=== PATIENT | male | born 1955 | race Caucasian/White ===

== ENCOUNTER 2022-03-20 15:15 | Outpatient (RCR) | payer MEDICARE, SELFPAY ==
--- NOTE | 2022-02-11 16:15 | PT.OPDNX ---
PT [facility] Daily Note [facility] Daily Note Start: 01/30/22 14:58 Freq: Status: Active Protocol: Document 02/06/22 15:19 MARTHA (Rec: 02/06/22 16:26 MARTHA [id number]) E-Signed By Viktoriya Rodriguez DPT PT [facility] Daily Progress Note Visit Information Note Type Daily Note Visit Number 11 Insurance Authorized Visits - Physician Authorized Visits - Insurance Information Recert Due Date 02/13/22 Insurance Name [facility] Medical Diagnosis R shoulder RC bursitis Treating Diagnosis R shoulder pain, impaired R shoulder ROM, impaired R shoulder mobility/strength, limited tolerance for lifting/ reaching/throwing/workouts/ playing guitar, impaired posture, interrupted sleep. Subjective Subjective Patient reports minimal R shoulder pain. Main c/o ongoing pain in L forearm, feels he is getting some nerve pain and carpal tunnel syndrome pains which he's had before. HEP is going fine. Didn't get into the nerve glide exercises yet. Noticing some wrist, forearm, and finger pain/sx with typing and playing the guitar. Ongoing tightness and limited ROM reaching behind LB. Home Exercise Home Exercise Comments codmans shoulder rolls ice/heat table slide flex, circles, alphabet nerve glides UE green TB - shoulder ext, rows wand - ext, IR kanchan - flex, scap, IR HO issued for HEP Objective Patient Instructed in Risks/Benefits Yes Therapeutic Exercise Therapeutic Exercise Minutes (minutes) 44 Therapeutic Exercise: To Restore Review of HEP, nerve glides Functional Status Lat pull downs - 5 plates x 20 triceps - 3 plates x 20 bilateral UE pull down - 3 plates x 20 rows - 2 plates x 20 shoulder ext - 2 plates x 20 CC sideways - 2 plates - reach out/in x 10, half crow x 10 - performed facing R/L PNF patterns D1/D2 ext - 2 plates x 20 R/L PNF patterns D1/D2 flex - 1 1/ 2 plates x 20 R/L biceps curl - 3 plates x 20 wand - ext and IR green TB - ext and rows kanchan IR stretching HO for HEP. Treatment Minutes Timed Code Treatment Minutes 44 Total Treatment Time 44 Billing Units Therapeutic Exercise Units 3 Assessment/Impression Assessment/Impression R shoulder pain continues to be minimal to none. Still some pain with certain reaching motions or positions. Patient is tight with IR reach behind low back. Overall R shoulder pain/sx have improved and R shoulder ROM has improved. Patient is tolerating R shoulder strengthening and stabilization exercises well. No longer needing k-tape to support the R shoulder. Patient c/o ongoing R forearm pain with certain positions, reaching with UE. Appears to be some UE neural tension including radial and median nerves. Patient reports noticing some carpal tunnel syndrome tingling into R hand/ 2nd finger this past week. He hasn't been doing the nerve glide exercises. Continued today with gym program for shoulder ROM, strengthening, and stabilization. Reviewed nerve glides today and patient will work these into his HEP. R shoulder IR stretching with wand and kanchan added to HEP as this remains tight, limited with AROM. Patient would benefit from skilled PT for ongoing pain/sx management , improved R shoulder ROM, improved R shoulder strength/ stability, and progression of HEP. Will send progress note and recert to PA for signature and continue PT 1x/week for ongoing progress toward PT goals. Plan of Care Physical Therapy Goals 1. Decrease R shoulder pain to less than/equal to 3/10 with daily/workout activities and with the progression of PT activities over the next 4-6 weeks. - R shoulder pain has been less, some ongoing R forearm pain/sx 2. Decrease R shoulder pain so that patient is able to sleep through the night on a regular basis within 3-4 weeks . - MET 3. Improve R shoulder AROM over the next 6-8 weeks for return to daily/workout activities without flare up of pain. - R shoulder IR remains tight, limited. 4. Patient will be educated on posture and body mechanics over the next 3-4 weeks for decreased stress to UBN/ shoulder region, improved shoulder mechanics, and decreased shoulder pain. - MET 5. Improve R shoulder strength over the next 10-12 weeks for return to PLF with daily/workout activities and playing the guitar without flare up of pain. - strength improving 6. Patient will be I with HEP within 12 weeks for progression toward above goals , ongoing self management of pain/sx, ongoing self improvements in posture/shoulder strength/ mechanics, and for return to PLF with daily/workout activities without flare up of pain. - HEP in place, progressing as able Daily Plan of Care Continue per POC Recertification Information Clinical Certification # #[id number] Patient's H.I.C.N.# # Initial Certification Date 11/21/21 Most Recent Visit 02/06/22 Recertification Start Date 02/06/22 Recertification Due Date 03/22/22 Reasons to Continue Skilled Therapy see above note Rehabilitation Potential good Continued Plan of Care and Interventions 1x/week TE, MT as needed. I Certify That I Have Established All Therapy Services/Plan Therapist Signature & License Number VIKTORIYA RODRIGUEZ, DPT/[id number] Physician Signature Shows Agreement Dates & Medical Necessity Physician Comment/Change Comment or Changes Physician Signature & Date Please Sign/Date Here Physician NPI Number #
== END 2022-05-20 14:29 | disposition home or self-care (01) ==
PROVIDERS: Visit Provider Physician Assistant Surgical
DX: M25.511 Pain in right shoulder (principal); M75.51 Bursitis of right shoulder; Z51.89 Encounter for other specified aftercare
CPT/HCPCS: 97110